=== PATIENT | female | born 1960 | race Caucasian/White ===

== ENCOUNTER 2021-08-20 12:32 | Emergency (ER) | payer MEDICAID ==
[2021-08-20 12:42] VITALS: BP 107/69
--- NOTE | 2021-08-20 14:10 | ED Physician Documentation ---
PD HPI HEENT - Stated complaint Stated Complaint: LT EAR PX - Chief complaint Chief Complaint: Heent - History obtained from History obtained from: Patient - History of Present Illness Timing - onset: How many days ago (3) Timing - duration: Days (3) Timing - details: Gradual onset, Still present Location: Left ear Improves: Nothing Worsens: Swalllowing Associated symptoms: Congestion, Rhinorrhea. No: Fever, Cough Similar symptoms before: Has not had sx before Recently seen: Not recently seen - Additional information Additional information: Previously well 61-year-old female has developed pain in her left ear. She has some muffled hearing associated with this but does not have a cough or fever. She does not have pain to push on the ear or to touch the ear. She has worsening pain if she swallows and the pain radiates into her neck. Review of Systems Constitutional: denies: Fever Eyes: denies: Decreased vision Ears: reports: Loss of hearing, Ear pain Nose: reports: Rhinorrhea / runny nose, Congestion Throat: reports: Sore throat Cardiac: denies: Chest pain / pressure, Palpitations Respiratory: denies: Dyspnea, Cough GI: denies: Vomiting PD PAST MEDICAL HISTORY - Present Medications Home Medications: Ambulatory Orders Medication Instructions Recorded Confirmed Amox/Clav 875/125 [Augmentin] 1 each PO Q12H #20 tablet 08/20/21 - Allergies Allergies/Adverse Reactions: Allergies Allergy/AdvReac Type Severity Reaction Status Date / Time Sulfa (Sulfonamide Allergy Anaphylaxis Verified 08/20/21 12:39 Antibiotics) PD ED PE NORMAL - Vitals Vital signs reviewed: Yes (Normal) - General General: Alert and oriented X 3, No acute distress, Well developed/nourished - HEENT HEENT: Atraumatic, PERRL, EOMI, Other (Right TM is clear the left has cerumen in place which is removed to reveal erythema of the anterior portion of the TM. Rounding of the umbo. Pharynx is with swelling and erythema to the tonsils bilaterally 1+.) - Neck Neck: Supple, no meningeal sign, No bony TTP - Cardiac Cardiac: RRR, No murmur - Respiratory Respiratory: No respiratory distress, Clear bilaterally - Abdomen Abdomen: Normal bowel sounds, Soft, Non tender, Non distended, No organomegaly - Back Back: No CVA TTP, No spinal TTP - Derm Derm: Normal color, Warm and dry, No rash - Extremities Extremities: No deformity, No edema - Neuro Neuro: Alert and oriented X 3, executive director 2-12 intact, No motor deficit, No sensory deficit, Normal speech Eye Opening: Spontaneous Motor: Obeys Commands Verbal: Oriented GCS Score: 15 - Psych Psych: Normal mood, Normal affect Results - Vitals Vitals: Vital Signs - 24 hr 08/20/21 12:39 Temperature 36.5 C Heart Rate 78 Respiratory 16 Rate Blood Pressure 107/69 O2 Saturation 97 Oxygen O2 Source Room air PD MEDICAL DECISION MAKING - ED course Complexity details: considered differential, d/w patient ED course: 61-year-old female with left ear pain appears to have some anterior inflammation to the middle ear symptoms consistent with inflammation to the eustachian tube as well. She is administered dexamethasone 10 mg orally we will place her on some Augmentin. Departure - Departure Disposition: 01 Home, Self Care Clinical Impression: Otitis media Qualifiers: Otitis media type: suppurative Chronicity: acute Laterality: left Recurrence: not specified as recurrent Spontaneous tympanic membrane rupture: without spontaneous rupture Qualified Code(s): H66.002 - Acute suppurative otitis media without spontaneous rupture of ear drum, left ear Instructions: ED Otitis Media Serous Adult, ED Otitis Media Acute Adult Follow-Up: BHAVANA LUGO MD [Primary Care Provider] - [facility] [Provider Group] Prescriptions: Amox/Clav 875/125 [Augmentin] 1 each PO Q12H #20 tablet
[2021-08-20] MEDS ORDERED: CHERRY SYRUP 10 ML UDC PO ONE (14:20)
[2021-08-20] MEDS ORDERED: DEXAMETHASONE 10 MG/ML VIAL PO STA (14:20)
== END 2021-08-20 14:40 | disposition home or self-care (01) ==
LOC: ED 12:32
DX: H66.002 Acute suppurative otitis media without spontaneous rupture of ear drum, left ear (principal)
CPT/HCPCS: 99282; 99283; A9270